=== PATIENT | male | born 1950 | race Caucasian/White ===

== ENCOUNTER → 2016-10-07 | Outpatient (CLI) | payer OTHER ==
[2016-10-07 16:13] LABS: BLOOD UREA NITROGEN 19 mg/dL (7-22); CALCIUM 8.9 mg/dL (8.7-10.7); EST GLOMERULAR FILTRATION > 60 (>60 ml/min/1.73m(2)); SERUM ALBUMIN 4.3 g/dL (3.5-4.8)
[2016-10-07 16:14] LABS: HEMOGLOBIN A1C 6.54 % (4.2-6.0)
[2016-10-07 16:29] LABS: FREE T4 (FREE THYROXINE) 1.16 ng/dL (0.93-1.71)
[2016-10-07 16:32] LABS: CREATININE, URINE 242.9 MG/DL (15-500)
== END ==
LOC: MOB LAB 15:11
PROVIDERS: ATTEND Family Medicine
DX: E11.9 Type 2 diabetes mellitus without complications (principal); Z79.4 Long term (current) use of insulin; I10 Essential (primary) hypertension; E78.5 Hyperlipidemia, unspecified
CPT/HCPCS: 36415; 80053; 82043; 83036; 84439; 84443